=== PATIENT | female | born 1960 | race Caucasian/White ===

== ENCOUNTER 2016-11-15 11:48 | Inpatient (IN) | payer BC, OTHER ==
[2016-11-08 10:58] VITALS: BMI 47.0
--- NOTE | 2016-11-08 11:29 | PAT Medication Instructions ---
Service Date Nov 08, 2016. Current Home Medication List Acetaminophen (Tylenol), 1,000 MG PO PRN Atorvastatin (Lipitor), 20 MG PO for AM Carbamazepine Extended Release (Tegretol Xr), 300 MG PO BID Evening Conway Oil (Evening Conway Oil), 1,000 MG PO BID Fexofenadine Hcl (Dian), 180 MG PO QAM Fluticasone Propionate (Nasal) (Flonase Allergy Relief), 1 SPRAY MERY PRN Furosemide (Lasix), 20 MG PO QAM [Calcium], 600 MG PO QAM Medication Instructions For Your Scheduled Surgery - Hold the following medications 1 week prior to surgery: Evening Conway Oil (Evening Conway Oil), 1,000 MG PO BID - Hold the following medications the morning of surgery: Furosemide (Lasix), 20 MG PO QAM [Calcium], 600 MG PO QAM Fexofenadine Hcl (Dian), 180 MG PO QAM - Take the following medications the morning of surgery with a sip of water OTHERWISE NOTHING TO EAT OR DRINK AFTER MIDNIGHT: Fluticasone Propionate (Nasal) (Flonase Allergy Relief), 1 SPRAY MERY PRN Carbamazepine Extended Release (Tegretol Xr), 300 MG PO BID Atorvastatin (Lipitor), 20 MG PO for AM Acetaminophen (Tylenol), 1,000 MG PO PRN (if needed up to 4 hours prior to surgery) - Take the following medications as scheduled the night before surgery: Fluticasone Propionate (Nasal) (Flonase Allergy Relief), 1 SPRAY MERY PRN Carbamazepine Extended Release (Tegretol Xr), 300 MG PO BID Acetaminophen (Tylenol), 1,000 MG PO PRN If you have any questions please call us at [phone] or [phone] or [phone]
[2016-11-08 12:31] LABS: BASO % 0.2 %; BASO ABS # 0.01 K/uL (0-0.2); COMPLETE YES; EOS % 1.2 %; HEMATOCRIT 39.5 % (37-47); LYMPH % 46.1 %; LYMPH ABS # 1.89 K/uL (1.2-3.4); MEAN CELL VOLUME 90.6 fL (80-100); MEAN CORPUSCULAR HEMOGLOBIN 31.7 pg (25-34); MEAN CORPUSCULAR HGB CONC 34.9 g/dl (32-36); MEAN PLATELET VOLUME 9.7 fL (7.4-10.4); MONO % 5.9 %; NEUT % 46.6 %; PLATELET COUNT 149 K/uL (130-400); RED BLOOD COUNT 4.36 M/uL (4.2-5.4)
[2016-11-08 12:45] LABS: URINE APPEARANCE CLEAR (CLEAR); URINE BILIRUBIN NEG (NEG); URINE COLOR YELLOW; URINE NITRITE NEG (NEG); URINE PH 5.5 (4.5-7.5); URINE SPECIFIC GRAVITY 1.021 (1.000-1.030); UROBILINOGEN NEG (NEG); ZZUR CULT IF INDIC CLEAN CATCH NO
[2016-11-08 12:54] LABS: MANUAL MICROSCOPIC REQUIRED? NO; REVIEW REQ? NO
[2016-11-08 14:06] LABS: BUN/CREATININE RATIO 17.5 (10-20); CALCIUM 9.3 mg/dl (8.5-10.1); CREATININE 0.94 mg/dl (0.60-1.20); POTASSIUM 4.6 mmol/L (3.5-5.1)
[2016-11-15] VITALS (7 sets, daily range): BP systolic 115–157; BP diastolic 67–83; PULSE 65–95; TEMP 36.4–37; O2SAT 96–100; Ht 162.6 cm; Wt 125.6 kg
[~2016-11-15] VITALS: Ht 162.6 cm; Wt 125.6 kg
[~2016-11-15 11:48] MED LIST: ACET-1256 PO; ATOR-22 PO; CALC-51 PO; CARB1CAP10 PO; CEFAZOLIN 3000 MG/65 ML D5W IV SCH; EVENCAP6 PO; FEXO1TAB46 PO; FLUT0.15 NAE; FURO-85 PO; LACTATED RINGER'S 1000ML 1,000 ML IV SCH
--- NOTE | 2016-11-15 13:30 | History & Physical Bridge Note ---
H&P Re-Evaluation Bridge Note: I have examined the patient, reviewed the History & Physical and in the interval since the performance of the History & Physical I have noted the following changes of clinical significance: No changes noted
--- NOTE | 2016-11-15 13:30 | History and Physical ---
History & Physical Date Nov 15, 2016. Chief Complaint Back and bilateral leg pain History of Present Illness The patient is a 56 year old female with complaints of back and bilateral leg pain Past Medical/Surgical History Medical Problems: (1) Arthritis of knee Additional History Hepatic Disease: No Endocrine Disorder: No Kidney Disease: No Hypertension: No Heart Disease: No Bleeding Tendencies: No Infectious Diseases: No Allergies Coded Allergies: Codeine (Verified Allergy, Unknown, PATIENT STATES MED HAS AGGRIVATED SEIZURES IN PAST, 11/15/16) Home Medications Scheduled Acetaminophen (Tylenol), 1,000 MG PO PRN Carbamazepine Extended Release (Tegretol Xr), 300 MG PO BID Evening Warwick Oil (Evening Warwick Oil), 1,000 MG PO BID Fexofenadine Hcl (Dian), 180 MG PO QAM Fluticasone Propionate (Nasal) (Flonase Allergy Relief), 1 SPRAY MERY PRN Furosemide (Lasix), 20 MG PO QAM [Calcium], 600 MG PO QAM Scheduled PRN Atorvastatin (Lipitor), 20 MG PO for AM Physical Examination Skin: warm/dry, no rash Eyes: normal inspection, EOMI, sclerae normal ENT: normal ENT inspection, pharynx normal Head: normocephalic, atraumatic Neck: supple, no adenopathy, trachea midline Respiratory/Chest: lungs clear, normal breath sounds, no respiratory distress Cardiovascular: regular rate, rhythm, no edema, no murmur Abdomen / GI: normal bowel sounds, non tender Back: normal inspection Extremities: normal inspection, normal range of motion Neurologic/Psych: no motor/sensory deficits, alert, normal reflexes, oriented x 3 Diagnosis Lumbar spinal stenosis Plan of Treatment Lumbar decompression L2 3 with fusion. Removal of instrumentation L3 to S1.
[2016-11-15] MEDS ORDERED: MIDAZOLAM HCL 1 MG/ML 2ML VIAL ONE (13:40)
[2016-11-15] MEDS ORDERED: FENTANYL CITRATE INJ 50 MCG/1 ML 2 ML VIAL ONE ×4 (13:40→16:47)
[2016-11-15] MEDS ORDERED: MoRPHine SULFATE 10 MG/ML CARP/VIAL IV PRN (13:45)
[2016-11-15] MEDS ORDERED: ONDANSETRON INJ 2 MG/ML 2 ML VIAL IV PRN ×2 (13:45→16:45)
[2016-11-15] MEDS ORDERED: FENTANYL CITRATE INJ 50 MCG/1 ML 2 ML VIAL IV PRN (13:45)
[2016-11-15] MEDS ORDERED: ATROPINE SULFATE 0.1 MG/ML 5ML SYR IV PRN (13:45)
[2016-11-15] MEDS ORDERED: EpHEDrine SULFATE INJ 50 MG/ML AMP IV PRN (13:45)
[2016-11-15] MEDS ORDERED: BUPIVACAINE/EPINEPHRINE 0.5% MPF 1:200,000 10 ML VIAL ONE (14:00)
[2016-11-15] MEDS ORDERED: BACITRACIN 50000 UNIT VIAL ONE (14:00)
[2016-11-15] MEDS ORDERED: SODIUM CHLORIDE 0.9% PF 50 ML VIAL ONE (14:00)
[2016-11-15] MEDS ORDERED: HYDROmorphone INJ 2 MG/ML SYR/VIAL ONE (14:29)
[2016-11-15] MEDS ORDERED: ONDANSETRON INJ 2 MG/ML 2 ML VIAL ONE ×2 (14:49→16:38)
[2016-11-15] MEDS ORDERED: LIDOCAINE HCL 2% 2 ML VIAL (20MG/ML) ONE (14:49)
[2016-11-15] MEDS ORDERED: PROPOFOL IV EMULSION 10 MG/ML 20 ML VIAL IV ONE (14:49)
[2016-11-15] MEDS ORDERED: DEXAMETHASONE SOD INJ 4 MG/ML VIAL ONE (14:49)
[2016-11-15] MEDS ORDERED: ROCURONIUM BROMIDE 10 MG/ML 5 ML VIAL ONE (14:49)
[2016-11-15] MEDS ORDERED: FLOSEAL HEMOSTATIC MATRIX 10ML TOP ONE (16:36)
[2016-11-15] MEDS ORDERED: SODIUM CHLORIDE 0.9% 1000ML 1,000 ML IV SCH (16:36)
[2016-11-15] MEDS ORDERED: EpHEDrine SULFATE INJ 50 MG/ML AMP ONE (16:38)
[2016-11-15] MEDS ORDERED: GLYCOPYRROLATE INJ 0.2 MG/ML VIAL ONE (16:38)
[2016-11-15] MEDS ORDERED: NEOSTIGMINE METHYLSULFATE 1 MG/ML 10ML VIAL ONE (16:38)
[2016-11-15] MEDS ORDERED: PHENYLEPHRINE 100MCG/ML 5ML SYR ONE (16:38)
--- NOTE | 2016-11-15 16:43 | [facility] Operative Report ---
Operative Report Operative Date Nov 15, 2016. Pre-Operative Diagnosis Lumbar Spinal Stenosis Post-Operative Diagnosis Lumbar Spinal Stenosis Procedure(s) Performed #1 removal of posterior instrumentation L3 4 L4 5 L5-S1. #2 expiration of fusion L3 4 L4 5 L5-S1. #3 lumbar decompression medial facetectomies L2-3 L3 4. #4 posterior spinal fusion L2 3 L3 4. #5 placement of posterior segmental instrumentation L2 3 L3 4. #6 placement of locally harvested morcellized autograft and posterior gutters. #7 placement infuse collagen sponge, mask graft in the posterior lateral gutters. Surgeon Dr. Hilton Unix Manager Surgeon(s) Marcelo Mcdonald PA-C Estimated Blood Loss 700ML Findings Severe spinal stenosis with nonunion L34. Specimens A. Explanted Hardware L3-S1 Description of Procedure Patient was met with preoperatively case discussed all questions are dressed. That point patient was taken back to the operative suite and after undergoing intubation placed in a prone position on the Orlin table on top of the James frame. All bony promises well-padded eyes inspected to ensure there is no external pressure placed upon. This point the lumbar spine prepped and draped in the normal sterile fashion. Sharp dissection with the assistance of Bovie cautery was performed onto an exposing the lamina of L2 in the instrumentation L3 4 5 S1 levels bilaterally. I then proceeded to remove the hardware bilaterally explored the fusion mass noting nonunion at the L3 4 level. All other levels were solid. Then performed a complete laminectomy of L3 L2 addressing severe lateral recess stenosis. After this complete pedicle screws are placed in L2 L3 L4 bilaterally with the assistance of fluoroscopy in the properly sized minal locked in position. Cross-link was locked in position. The transverse processes of L2 L3 L4 were then burred to subcortical bleeding bone. Infuse calm sponge mask graft locally harvested morcellized autograft was placed and posterior gutters. A 15 round GRACE drain inserted. Incision was then closed with 1 Vicryl in the fascia 2-0 Vicryl subcutaneous C 4 Monocryl for final skin closure Steri-Strip sterile dressing placed patient awakened taken to PACU stable condition. Please note Michael Mcdonald was present throughout the entire procedure involved in patient positioning complex portions of the procedure and final skin closure. I attest to the content of the Intraoperative Record and any orders documented therein. Any exceptions are noted below.
[2016-11-15] MEDS ORDERED: ACETAMINOPHEN IV 100 ML IV PRN (16:45)
[2016-11-15] MEDS ORDERED: LORAZEPAM INJ 0.5 MG in SYRINGE 0 ML IV PRN (16:45)
[2016-11-15] MEDS ORDERED: MAGNESIUM HYDROXIDE SUSP 30 ML UDC PO PRN (16:45)
[2016-11-15] MEDS ORDERED: SOD PHOSPHATE/SOD BIPHOSPHATE ENEMA 132 ML BTL PR PRN (16:45)
[2016-11-15] MEDS ORDERED: PROMETHAZINE HCL INJ 12.5 MG in SODIUM CHLORIDE 0.9% 50ML 50 ML IV PRN (16:45)
[2016-11-15] MEDS ORDERED: ALUMINUM/MAGNESIUM SUSP 30 ML UDC PO PRN (16:45)
[2016-11-15] MEDS ORDERED: NALOXONE HCL 0.4 MG/1 ML VIAL/CARP IV PRN ×2 (16:45)
[2016-11-15] MEDS ORDERED: FAMOTIDINE 20 MG TAB PO PRN (16:45)
[2016-11-15] MEDS ORDERED: DO NOT ADMINISTER PNEUMOCOCCAL VACCINE PRN ×2 (16:45)
[2016-11-15] MEDS ORDERED: DO NOT ADMINISTER FLU VACCINE PRN ×3 (16:45)
[2016-11-15] MEDS ORDERED: BISACODYL 10 MG SUPP PR PRN (16:45)
[2016-11-15] MEDS ORDERED: LORAZEPAM 0.5 MG TAB PO PRN (16:45)
[2016-11-15] MEDS ORDERED: hydrOXYzine HCL 25 MG TAB PO PRN (16:45)
[2016-11-15] MEDS ORDERED: METOCLOPRAMIDE HCL INJ 5 MG/ML 2 ML VIAL IV PRN (16:45)
[2016-11-15] MEDS ORDERED: FLUTICASONE PROPIONATE NA SPR 16 GM BTL NAE PRN (16:45)
[2016-11-15] MEDS ORDERED: ACETAMINOPHEN 500 MG TAB PO PRN (16:45)
[2016-11-15] MEDS ORDERED: HYDROmorphone INJ 0.5 MG/0.5 ML SYR IV PRN (16:45)
--- NOTE | 2016-11-15 16:50 | DIAGNOSTIC IMAGING REPORT ---
LUMBAR SPINE 2 OR 3 VIEW CLINICAL HISTORY: L3-S1 DECOMP/FUSION fusion TECHNIQUE: Image intensifier COMPARISON STUDY: None FINDINGS: Image intensifier was used for lumbar laminectomy and fusion IMPRESSION: Image intensifier usage for lumbar laminectomy and fusion The above report was generated using voice recognition software. It may contain grammatical, syntax or spelling errors. Electronically signed by: Prince Flores M.D. 11/15/2016 4:48 PM Dictated Date/Time: 11/15/2016 4:48 PM
[2016-11-15] MEDS ORDERED: HYDROmorphone HCL 0.5MG/ML 50 ML CASSETTE ONE (17:05)
[2016-11-15] MEDS ORDERED: HYDROmorphone INJ 1 MG/ML SYR IV PRN (17:15)
--- NOTE | 2016-11-15 18:11 | Anesthesiology Progress Note ---
Anesthesia Post Op Note Date & Time Nov 15, 2016 at 18:11 Vital Signs Pain Intensity: 5 Vital Signs Past 12 Hours Date Time Temp Pulse Resp B/P (MAP) Pulse Ox O2 Delivery O2 Flow Rate FiO2 11/15/16 18:03 122/71 11/15/16 18:02 86 16 11/15/16 18:02 82 16 100 11/15/16 18:01 161/90 11/15/16 17:57 93 22 11/15/16 17:57 95 22 100 11/15/16 17:56 166/87 11/15/16 17:55 161/79 11/15/16 17:52 85 18 100 11/15/16 17:52 85 18 11/15/16 17:51 160/86 11/15/16 17:50 65 18 11/15/16 17:50 73 18 100 11/15/16 17:46 171/83 11/15/16 17:45 89 22 100 11/15/16 17:45 90 22 11/15/16 17:41 158/89 11/15/16 17:40 91 14 100 11/15/16 17:40 91 14 11/15/16 17:37 149/84 11/15/16 17:36 189/89 11/15/16 17:36 36.6 87 16 158/89 (110) 100 Nasal Cannula 4 11/15/16 17:35 87 15 100 11/15/16 17:35 86 15 11/15/16 17:34 87 13 100 11/15/16 17:34 86 13 11/15/16 17:31 167/84 11/15/16 17:29 88 23 11/15/16 17:29 87 23 100 11/15/16 17:28 91 19 11/15/16 17:28 91 19 100 11/15/16 17:28 91 19 11/15/16 17:28 91 19 100 11/15/16 17:26 163/81 11/15/16 17:26 163/81 11/15/16 17:23 87 17 11/15/16 17:23 87 17 100 11/15/16 17:23 87 17 11/15/16 17:23 87 17 100 11/15/16 17:21 164/79 11/15/16 17:21 164/79 11/15/16 17:18 92 16 100 11/15/16 17:18 92 16 100 11/15/16 17:18 91 16 11/15/16 17:18 91 16 11/15/16 17:16 164/82 11/15/16 17:16 164/82 11/15/16 17:13 90 17 100 11/15/16 17:13 90 17 100 11/15/16 17:13 92 17 11/15/16 17:13 92 17 11/15/16 17:11 156/75 11/15/16 17:11 156/75 11/15/16 17:08 83 13 11/15/16 17:08 83 13 11/15/16 17:08 83 13 100 11/15/16 17:08 83 13 100 11/15/16 17:06 147/83 11/15/16 17:06 147/83 11/15/16 17:04 156/81 11/15/16 17:04 156/81 11/15/16 17:03 92 10 97 11/15/16 17:03 36.6 89 16 156/81 96 Mask 10 11/15/16 17:03 92 10 97 11/15/16 17:03 92 10 11/15/16 17:03 92 10 11/15/16 12:28 37 73 18 98 Room Air Notes Mental Status: alert / awake / arousable, participated in evaluation Pt Amnestic to Procedure: Yes Nausea / Vomiting: adequately controlled Pain: adequately controlled Airway Patency, RR, SpO2: stable & adequate BP & HR: stable & adequate Hydration State: stable & adequate Anesthetic Complications: no major complications apparent
[2016-11-15] MEDS: HYDROmorphone HCL 0.5MG/ML 50 ML CASSETTE IV PRN ×2 (18:34→22:55)
[2016-11-15] MEDS: SODIUM CHLORIDE 0.9% 1000ML 1,000 ML IV SCH ×2 (20:26→23:16)
[2016-11-15] MEDS: CARBAMAZEPINE 100 MG TABCR PO SCH (20:31)
[2016-11-15] MEDS: DOCUSATE SODIUM/SENNA 50/8.6MG TAB PO SCH (20:32)
[2016-11-15] MEDS: CEFAZOLIN IV 2,000 MG in DEXTROSE 5% 50ML 50 ML IV SCH (21:33)
[2016-11-15] MEDS: DEXAMETHASONE INJ 6 MG in SYRINGE 0 ML IV SCH (21:33)
[2016-11-16 03:29] VITALS: BP 100/66; PULSE 98; TEMP 36.7; O2SAT 99
[2016-11-16] MEDS: CEFAZOLIN IV 2,000 MG in DEXTROSE 5% 50ML 50 ML IV SCH (05:57)
[2016-11-16] MEDS: DEXAMETHASONE INJ 6 MG in SYRINGE 0 ML IV SCH ×3 (05:57→17:12)
[2016-11-16] MEDS ORDERED: DC PCA ONE (06:00)
[2016-11-16 06:29] LABS: COMPLETE YES; IG% 0.4 %; LYMPH % 14.7 %; LYMPH ABS # 0.76 K/uL (1.2-3.4); MEAN CELL VOLUME 91.2 fL (80-100); MEAN CORPUSCULAR HEMOGLOBIN 31.4 pg (25-34); MEAN CORPUSCULAR HGB CONC 34.5 g/dl (32-36); MEAN PLATELET VOLUME 9.5 fL (7.4-10.4); MONO % 4.1 %; NEUT % 80.8 %; PLATELET COUNT 131 K/uL (130-400); RED BLOOD COUNT 3.18 M/uL (4.2-5.4); WHITE BLOOD COUNT 5.16 K/uL (4.8-10.8)
[2016-11-16] MEDS ORDERED: NURSING VERBAL MED ORDER ONE (06:30)
[2016-11-16 07:07] LABS: BUN/CREATININE RATIO 10.7 (10-20); CALCIUM 8.6 mg/dl (8.5-10.1); CREATININE 0.82 mg/dl (0.60-1.20); POTASSIUM 4.4 mmol/L (3.5-5.1)
[2016-11-16 07:32] VITALS: BP 97/67; PULSE 86; TEMP 36.8; O2SAT 99
[2016-11-16] MEDS: FUROSEMIDE 20 MG TAB PO SCH (09:00)
[2016-11-16] MEDS ORDERED: SODIUM CHLORIDE 0.65% NA SOLN 45 ML (OCEAN) ONE (09:33)
[2016-11-16] MEDS: OXYCODONE HCL IR 5 MG TAB (IMMEDIATE RELEASE) PO PRN ×2 (09:35→23:52)
[2016-11-16] MEDS: FEXOFENADINE HCL 180 MG TAB PO SCH (09:37)
[2016-11-16] MEDS: CARBAMAZEPINE 100 MG TABCR PO SCH ×2 (09:38→20:22)
[2016-11-16] MEDS ORDERED: NURSING DECISION MEDICATION ORDER SCH ×2 (09:45→14:45)
--- NOTE | 2016-11-16 09:54 | Progress Note ---
Progress Note Date of Service Nov 16, 2016. Progress Note Patient's back pain is markedly improved. Leg pain improved. Vital signs are stable GRACE drain decreasing appropriately. On exam she is in chair at bedside as good strength testing appears comfortable. Assessment status post lumbar depression fusion. Planned this time initiate physical therapy advance her bowel regimen anticipate home possibly Friday
[2016-11-16] MEDS ORDERED: SODIUM CHLORIDE 0.65% NA SOLN 45 ML (OCEAN) PRN (10:15)
[2016-11-16 11:02] VITALS: BP 111/73; PULSE 57; O2SAT 97
[2016-11-16] MEDS ORDERED: COUGH DROP (SUGAR FREE) LOZ 24 LOZ/1 BOX ONE (14:35)
[2016-11-16] MEDS ORDERED: COUGH DROP (SUGAR FREE) LOZ 24 LOZ/1 BOX PO PRN (14:45)
[2016-11-16 15:41] VITALS: BP 121/77; PULSE 69; TEMP 36.8; O2SAT 100
[2016-11-16] MEDS: DOCUSATE SODIUM/SENNA 50/8.6MG TAB PO SCH (20:21)
[2016-11-16 23:15] VITALS: BP 110/73; PULSE 75; TEMP 36.7; O2SAT 99
[2016-11-17] MEDS: POLYETHYLENE (MIRALAX) 17 GM PACK PO SCH ×4 (05:56→23:42)
[2016-11-17 06:59] VITALS: BP 118/74; PULSE 74; TEMP 36.7; O2SAT 100
[2016-11-17] MEDS: OXYCODONE HCL IR 5 MG TAB (IMMEDIATE RELEASE) PO PRN ×3 (07:30→20:43)
[2016-11-17] MEDS: CARBAMAZEPINE 100 MG TABCR PO SCH ×2 (07:31→20:39)
[2016-11-17] MEDS: FEXOFENADINE HCL 180 MG TAB PO SCH (07:31)
[2016-11-17] MEDS: FUROSEMIDE 20 MG TAB PO SCH (07:32)
[2016-11-17] MEDS ORDERED: KETOROLAC TROMETHAMINE 30 MG/ML VIAL IV PRN (09:15)
--- NOTE | 2016-11-17 09:16 | Progress Note ---
Progress Note Date of Service Nov 17, 2016. Progress Note Patient is improving nicely. Back pain only. Leg pain improved. Vital signs stable GRACE drain decreasing appropriately. On exam she is ambulatory in the halls with a walker. Comfortable. Assessment status post lumbar depression fusion replant this time will maintain the GRACE drain another 24 hours. We'll consult OT and possibly discharge home tomorrow.
[2016-11-17 15:12] VITALS: BP 105/69; PULSE 84; TEMP 36.8; O2SAT 100
[2016-11-17 16:30] VITALS: O2SAT 100
[2016-11-17] MEDS: DOCUSATE SODIUM/SENNA 50/8.6MG TAB PO SCH (20:39)
[2016-11-17 23:03] VITALS: BP 136/71; PULSE 93; TEMP 37; O2SAT 98
[2016-11-18] MEDS: POLYETHYLENE (MIRALAX) 17 GM PACK PO SCH (05:26)
[2016-11-18] MEDS ORDERED: NURSING DECISION MEDICATION ORDER SCH (06:15)
[2016-11-18 07:03] VITALS: BP 122/76; PULSE 87; TEMP 37.4; O2SAT 95
[2016-11-18] MEDS: OXYCODONE HCL IR 5 MG TAB (IMMEDIATE RELEASE) PO PRN ×2 (08:25→13:39)
[2016-11-18] MEDS: FUROSEMIDE 20 MG TAB PO SCH (08:26)
[2016-11-18] MEDS: CARBAMAZEPINE 100 MG TABCR PO SCH (08:26)
[2016-11-18] MEDS: FEXOFENADINE HCL 180 MG TAB PO SCH (08:26)
--- NOTE | 2016-11-18 08:29 | Anesthesiology Progress Note ---
Anesthesia Post Op Note Date & Time Nov 18, 2016 at 08:29 Vital Signs Pain Intensity: 6.0 Vital Signs Past 12 Hours Date Time Temp Pulse Resp B/P (MAP) Pulse Ox O2 Delivery O2 Flow Rate FiO2 11/18/16 07:03 37.4 87 19 122/76 (91) 95 Room Air 11/17/16 23:15 Room Air 11/17/16 23:03 37.0 93 16 136/71 (92) 98 Room Air Notes Mental Status: alert / awake / arousable, participated in evaluation Pt Amnestic to Procedure: Yes Nausea / Vomiting: adequately controlled Pain: adequately controlled Airway Patency, RR, SpO2: stable & adequate BP & HR: stable & adequate Hydration State: stable & adequate Anesthetic Complications: no major complications apparent
[2016-11-18] MEDS ORDERED: RXC5 PO (11:29)
--- NOTE | 2016-11-18 11:30 | Discharge Instructions ---
Discharge Instructions Date of Service Nov 18, 2016. Admission Reason for Admission: Lumbar Spinal Stenosis Discharge Discharge Diagnosis / Problem: stenosis Discharge Goals Goal(s): Improve function Activity Recommendations Activity Limitations: per Instructions/Follow-up section . Instructions / Follow-Up Instructions / Follow-Up ACTIVITY RECOMMENDATIONS: SELF CARE INSTRUCTIONS AFTER THORACIC/LUMBAR FUSIONS 1. You may walk to your tolerance. It is good exercise for your legs and back. Expect some back and intermittent leg aches and pains. 2. You may perform "counter-top" level activities (make a sandwich, carlee with a project, etc.). 3. No bending or lifting of more than 10 pounds or back twisting of any nature (roll like a log when turning in bed). 4. You may ride in a car for 20-30 minutes at a time. No driving until after your first visit with your doctor. 5. Frequent changes of position and restricting sitting to 30 minutes at a time will help limit the amount of back spasms and stiffness you may experience. 6. You may discontinue the use of ambulatory aids (cane, crutches, etc.) once your strength and confidence allow. 7. You may watchstander the shower and let water strike your incision when you arrive home at least once daily. Do not take a tub bath, sit in a hot tub or go into a swimming pool until after your first recheck in the office. SPECIAL CARE INSTRUCTIONS: VERY IMPORTANT TO READ AND REVIEW A. Your surgical incision has been closed with a cosmetic suture under the skin that will dissolve in about 6 weeks. In 14 days, you can use a pair of clean scissors and cut the suture that is left outside of the skin at the ends of your incision. 1. The small skin tapes can be removed 7 days after surgery if they have not fallen off by that point. 2. You may keep the wound open to air as much as possible to promote healing after post-op day number 5 unless told otherwise by your doctor. 3. If you think the wound looks like it is becoming infected (redness or worsening drainage) and/or you are experiencing fever, chill or worsening back pain and muscle spasms, contact the office so that we may evaluate you as soon as possible. B. Complications are uncommon, but please contact us if you have any signs or symptoms of: 1. wound infection (fever higher than 102.5 degrees F, redness, separation of wound, drainage, or increasing pain from the incision) 2. blood clots in legs (pain, swelling, redness and warmth in legs) 3. urinary tract infection (fever higher than 102.5 degrees F, burning upon urination or increased frequency of urination) 4. nerve problems (inability to walk on your toes or heels, numbness, loss of bowel or bladder control) 5. any other symptoms that concern you C. Please call the office at if you have any concerns or questions about your operation or recovery. D. No smoking! Smoking drastically decreases the chance of a solid fusion. E. Do not take any anti-inflammatory medications (Indocin, Advil, Motrin, Aspirin, Naprosyn, etc.) as these may inhibit the chance of a solid fusion. Tylenol is okay to take for pain. MANAGING PAIN AFTER SPINAL SURGERY 1. Narcotic medication is intended for short-term use and will be provided for surgical pain. Surgical pain usually lasts for a period of 4-6 weeks. Narcotic medication includes Percocet, Vicodin, Darvocet, Tylenol #3 or Lortab. 2. Longer-term pain is more appropriately treated with non-narcotic medication such as Tylenol ES. 3. Muscle spasm is not appropriately treated with narcotics. Muscle relaxers such as Soma, Flexeril or Skelaxin can be used along with Tylenol ES. 4. Remember that we all live with some "aches and pains". This is not unusual or uncommon after an injury or as we get older. a. Back pain is expected and may include muscle spasms for 4 to 6 weeks after surgery. The pain should gradually improve. If the pain worsens for no apparent reason, please contact the office. b. Intermittent leg pain may also be experienced and should not be concerned about unless it worsens for no apparent reason. If so, please contact the office. 5. We will provide appropriate medication within the normal guidelines of their prescribed use. We will also be very cautious and aware of potential abuse and extended duration of patients' medication needs. a. Pain medications are for your comfort and to assist with sleep and rest so that the tissue can heal. They are not provided in order to return to normal activity and should not be used through the day. To do so or worsening pain at night can result from ongoing tissue damage and development of tolerance to the prescribed medicine. 6. Please allow 2-3 days to process refills. Prescriptions will not be mailed but must be picked up at the office. FOLLOW UP VISIT: Keep your scheduled follow-up appointment. Any questions, please call the office at . Current Hospital Diet Patient's current hospital diet: Regular Diet Discharge Diet Recommended Diet: Regular Diet Procedures Procedures Performed: #1 removal of posterior instrumentation L3 4 L4 5 L5-S1. #2 expiration of fusion L3 4 L4 5 L5-S1. #3 lumbar decompression medial facetectomies L2-3 L3 4. #4 posterior spinal fusion L2 3 L3 4. #5 placement of posterior segmental instrumentation L2 3 L3 4. #6 placement of locally harvested morcellized autograft and posterior gutters. #7 placement infuse collagen sponge, mask graft in the posterior lateral gutters. Pending Studies Studies pending at discharge: no Medical Emergencies . Who to Call and When: Medical Emergencies: If at any time you feel your situation is an emergency, please call 911 immediately. . Non-Emergent Contact Non-Emergency issues call your: Primary Care Provider . "Provider Documentation" section prepared by Tomasz Hilton. . VTE Core Measure Inpt VTE Proph given/why not?: Jania Garrido, SCD's
[2016-11-18 13:17] VITALS: BP 122/76; PULSE 87; TEMP 37.4; O2SAT 95
--- NOTE | 2016-11-18 15:44 | Discharge Summary ---
Orthopedic Discharge Summary Admission Date/Reason Nov 15, 2016 at 13:35 Lumbar Spinal Stenosis. Discharge Date/Disposition Nov 18, 2016 Home Diagnosis Principal Diagnosis: Spinal stenosis Admission Physical Exam As per Admitting History & Physical. Hospital Course 1 lumbar decompression fusion trolleys wound taken to the orthopedic floor postoperatively. Postoperative leash progressed nicely. GRACE drain decreased appropriately. Subsequently discharge home. Discharge orders and instructions found the chart for further review. Discharge Instructions Please refer to the electronic Patient Visit Report (Discharge Instructions) for additional information.
== END 2016-11-18 14:45 | disposition home or self-care (01) | DRG 460 ==
LOC: C.ACU 11:48 → C.3E 13:35 → ENRESERV 17:50 → C.MSN 11-17 18:58
PROVIDERS: ADMIT Orthopaedic Surgery Orthopaedic Surgery of the Spine; ATTEND Orthopaedic Surgery Orthopaedic Surgery of the Spine
PROC: 0QP004Z Removal of Internal Fixation Device from Lumbar Vertebra, Open Approach (ICD-10-PCS; principal; 2016-11-15 13:45)
PROC: 0SG1071 Fusion of 2 or more Lumbar Vertebral Joints with Autologous Tissue Substitute, Posterior Approach, Posterior Column, Open Approach (ICD-10-PCS; principal; 2016-11-15 13:45)
DX: M48.06 Spinal stenosis, lumbar region (principal); M17.10 Unilateral primary osteoarthritis, unspecified knee

== ENCOUNTER → 2017-09-03 | Outpatient (CLI) | payer BC ==
[~2017-09-03] MED LIST changes: -CEFAZOLIN 3000 MG/65 ML D5W IV SCH; -LACTATED RINGER'S 1000ML 1,000 ML IV SCH; +RXC5 PO
[2017-09-03 13:31] LABS: ALBUMIN 3.8 gm/dl (3.4-5.0); ALT/SGPT 29 U/L (12-78); AST/SGOT 22 U/L (15-37); BLOOD UREA NITROGEN 19 mg/dl (7-18); CALCIUM 9.2 mg/dl (8.5-10.1); CARBON DIOXIDE 33 mmol/L (21-32); CREATININE 0.92 mg/dl (0.60-1.20); GLUCOSE 97 mg/dl (70-99); POTASSIUM 4.6 mmol/L (3.5-5.1); SODIUM 142 mmol/L (136-145)
[2017-09-03 13:34] LABS: ALKALINE PHOSPHATASE 138 U/L (45-117); TOTAL PROTEIN 7.5 gm/dl (6.4-8.2)
== END | disposition home or self-care (01) ==
LOC: C.LABMFLN 07:45
PROVIDERS: ATTEND Family Medicine
DX: R74.8 Abnormal levels of other serum enzymes (principal)

== ENCOUNTER → 2017-12-01 | Outpatient (CLI) | payer BC ==
--- NOTE | 2017-12-01 15:42 | DIAGNOSTIC IMAGING REPORT ---
R HIP UNILATERAL 2 VIEWS CLINICAL HISTORY: Acute right hip pain. COMPARISON: None FINDINGS: Alignment of the right hip is anatomic. No fracture or suspicious lesion is noted. There is mild joint space narrowing and moderate osteoarthritis of the right hip. There is no radiographic evidence for avascular necrosis. Postoperative findings within the lumbosacral spine are partially imaged. IMPRESSION: 1. No acute fracture. 2. Moderate right hip osteoarthritis. Electronically signed by: Dusty Hodges M.D. 12/01/2017 3:40 PM Dictated Date/Time: 12/01/2017 3:37 PM
== END | disposition home or self-care (01) ==
LOC: C.RAD1850 15:25
PROVIDERS: ATTEND Family Medicine
DX: M16.11 Unilateral primary osteoarthritis, right hip (principal)

== ENCOUNTER → 2017-12-01 | Outpatient (CLI) | payer BC | END | disposition home or self-care (01) | LOC: C.MAMM 14:38 | PROVIDERS: ATTEND Family Medicine | DX: Z78.0 Asymptomatic menopausal state (principal) ==

== ENCOUNTER 2019-02-18 09:53 | Inpatient (IN) ==
--- NOTE | 2019-02-04 16:35 | PAT Medication Instructions ---
Medication Instructions Date of Service February 04, 2019 Home Medications Medication Instructions Recorded carbamazepine ER 300 mg 300 mg PO BID #180 cap 11/23/18 capsule,extended release [id number] atorvastatin 20 mg tablet 20 mg PO QAM #90 tab 12/22/18 lisinopril 5 mg tablet 5 mg PO QAM #90 tab 01/14/19 carbamazepine ER 300 mg capsule,extended release [id number] 300 mg PO BID fluticasone propionate 2 sprays INTRANASAL QAM atorvastatin 20 mg tablet 20 mg PO QAM guaifenesin [Mucinex] 600 mg PO BID lisinopril 5 mg tablet 5 mg PO QAM fexofenadine 180 mg tablet 180 mg PO QAM furosemide 20 mg tablet 20 mg PO QAM PRN pantoprazole 40 mg PO QAM DO NOT take the morning of surgery guaifenesin [Mucinex] 600 mg PO BID lisinopril 5 mg tablet 5 mg PO QAM fexofenadine 180 mg tablet 180 mg PO QAM furosemide 20 mg tablet 20 mg PO QAM PRN Take morning of surgery With a small sip of water, OTHERWISE NOTHING TO EAT OR DRINK AFTER MIDNIGHT: carbamazepine ER 300 mg capsule,extended release [id number] 300 mg PO BID fluticasone propionate 2 sprays INTRANASAL QAM atorvastatin 20 mg tablet 20 mg PO QAM pantoprazole 40 mg PO QAM Take evening before surgery carbamazepine ER 300 mg capsule,extended release [id number] 300 mg PO BID guaifenesin [Mucinex] 600 mg PO BID Other Notes If you have any questions please call us at [phone] or [phone] or [phone] or [phone]
--- NOTE | 2019-02-05 11:28 | Anesthesiology Consultation ---
Date of Service February 05, 2019 Assessment & Plan (1) Encounter for pre-operative examination: Chart Review Chart Review: Pending: Refer to Additional Notes / Consult section (pending preop testing (labs, EKG)) and Patient seen in Pre Admission Testing Teaching & Discussion Pre-Anesthesia Teaching/Discussion Notes: Instructed NPO after midnight before surgery,except medications with 15 cc of water. Medication instructions provided according to the PAT guidelines. History Surgery Operation Date: 02/18/19 09:50 Proposed Procedures p T12-L1, L1-L2 Laminectomy and Fusion - Tc Segundo, Height/Weight Height: 5 ft 4 in Weight: 122.2 kg Allergies Allergy/AdvReac Type Severity Reaction Status Date / Time codeine AdvReac Mild enhanced Verified 02/05/19 11:23 prior seizures Medications Home Medications Medication Instructions Recorded Confirmed Last Taken carbamazepine ER 300 mg 300 mg PO BID #180 cap 11/23/18 02/04/19 12/29/18 07:00 capsule,extended release [id number] fluticasone propionate 2 sprays INTRANASAL QAM 12/17/18 02/04/19 12/27/18 07:30 atorvastatin 20 mg tablet 20 mg PO QAM #90 tab 12/22/18 02/04/19 12/29/18 07:00 guaifenesin [Mucinex] 600 mg PO BID 12/29/18 02/04/19 12/28/18 07:00 lisinopril 5 mg tablet 5 mg PO QAM #90 tab 01/14/19 02/04/19 Unknown fexofenadine 180 mg tablet 180 mg PO QAM 01/17/19 02/04/19 Unknown furosemide 20 mg tablet 20 mg PO QAM PRN tab 01/17/19 02/04/19 Unknown pantoprazole 40 mg PO QAM 02/02/19 02/04/19 Unknown Past Medical History Medical History Seizure disorder last seizure 20yrs ago--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, s/p brain surgery related to seizure hx Lumbar disc disease Lumbar back pain with radiculopathy affecting right lower extremity Hyperlipidemia HTN (hypertension) Arthritis Anemia Deep vein thrombosis calf DVT during , none further GERD (gastroesophageal reflux disease) controlled Morbid obesity Exercise / Class Metabolic Activity III < 4 Walking/Shop/Light housework Past Family History Family History Father Malignant neoplasm of urinary bladder Mother Family history of reaction to anesthesia difficulty waking Past Surgical History Surgical History History of Achilles tendon repair bilt History of arthroscopy of right knee x3--meniscus repair History of bilateral tubal ligation History of carpal tunnel surgery of left wrist History of colonoscopy History of esophagogastroduodenoscopy (EGD) History of fusion of cervical spine normal ROM History of lumbar spinal fusion x2 History of lumbar surgery History of repair of left rotator cuff History of surgery on left wrist History of tonsillectomy and adenoidectomy History of tooth extraction History of total right knee replacement (TKR) History of wisdom tooth extraction Status post lobectomy of brain left temporal at age 32 @ [facility] reason was d/t seizures Past Anesthesia History No Hx of Anesthesia Complications Mother: "slow to wake" History of PONV No Hx of PONV and No Hx of Motion Sickness Social History Smoking Status: Never smoker Do You Dip or Chew Tobacco: No Hx Alcohol Use: No Hx Substance Use: No substance use type: does not use Review of Systems Hx reflux controlled. Patient denies chest pain, shortness of breath, cough, wheezing, palpitations. Physical Exam Vital Signs VITALS BP 143/85 P 69 TEMP 98.0 SP02 98%RA RESP 16 PHYSICAL Full neck and c-spine range of motion. Full TMJ range of motion. TMD 3 finger breaths Mallampati Score 1 Dentition: missing sides Lungs: clear throughout to auscultation Cardiac: regular rate and rhythm, no murmurs noted Spine: normal Carotid arteries: negative bruit Extremities: no edema Testing Chest X-Ray Date: 08/10/18 Findings: + NAD
[2019-02-05 11:48] LABS: Basophils # (auto) 0.02 K/uL (0-0.2); Basophils % (auto) 0.5 %; Eosinophils # (auto) 0.07 K/uL (0-0.5); Eosinophils % (auto) 1.6 %; Hematocrit (blood only) 40.2 % (37-47); Hemoglobin 13.8 g/dL (12.0-16.0); Immature Granulocytes # (auto) 0.01 K/uL (0.00-0.02); Immature Granulocytes % (auto) 0.2 %; Lymphocytes # (auto) 1.77 K/uL (1.2-3.4); Lymphocytes % (auto) 41.5 %; Mean Corpuscular Hemoglobin 31.7 pg (25-34); Mean Corpuscular Hgb Conc 34.3 g/dL (32-36); Mean Corpuscular Volume 92.2 fL (80-100); Mean Platelet Volume 9.8 fL (7.4-10.4); Monocytes # (auto) 0.29 K/uL (0.11-0.59); Monocytes % (auto) 6.8 %; Neutrophils # (auto) 2.11 K/uL (1.4-6.5); Neutrophils % (auto) 49.4 %; Platelet Count 165 K/uL (130-400); RDW Coefficient of Variation 12.8 % (11.5-14.5); RDW Standard Deviation 43.3 fL (36.4-46.3); Red Blood Count 4.36 M/uL (4.2-5.4); White Blood Count 4.27 K/uL (4.8-10.8)
[2019-02-05 12:03] LABS: BUN Creatinine Ratio 14.9 (10-20); Calcium 9.1 mg/dl (8.5-10.1); Creatinine Clr Calc Pharmacy 81.7 ml/min; Est GFR (African American) 74.2; Potassium 4.5 mmol/L (3.5-5.1)
[2019-02-05 12:05] LABS: Partial Thromboplastin Ratio 0.9; Partial Thromboplastin Time 23.9 Seconds (21.0-31.0)
--- NOTE | 2019-02-17 14:45 | History and Physical Report ---
DATE OF ADMISSION: 02/17/2019 CHIEF COMPLAINT: Back and lower extremity difficulty, and claudication. Ongoing now for multiple years in duration, worsening over time. PAST MEDICAL HISTORY: Positive for obesity, hypertension, stomach ulcers, usual childhood diseases, high cholesterol, obesity. PAST SURGICAL HISTORY: Includes lobectomy, spine surgery, neck surgery, knee replacement, cubital tunnel. ALLERGIES: CODEINE. SOCIAL HISTORY: She is . No alcohol, tobacco. Active lifestyle. REVIEW OF SYSTEMS: Twelve system review is positive for fatigue. Ear, nose and throat negative. Denies chest pain, palpitations. No asthma, wheezing. No nausea, vomiting. She has numbness and tingling, seizure disorder, joint pain, stiffness, easy bruisability. MEDICATIONS: Listed reviewed. OBJECTIVE: GENERAL: She is alert, oriented. She is 5 feet 4 inches and 260 pounds. VITAL SIGNS: Blood pressure 140/80, pulse 80, respiration 16. HEENT: Pupils react to light and accommodation. Ear, nose and throat clear. CARDIAC: Normal S1, S2, no S3. ABDOMEN: Soft, nontender. MUSCULOSKELETAL: Back pain with flexion, extension, numbness and tingling and some weakness as well, loss of sensation. PLAN: Includes a laminectomy and fusion T12-L2.
[~2019-02-18 09:53] MED LIST changes: -ACET-1256 PO; +ACETAMINOPHEN 1000 MG/100 ML IV IV SCH; -ATOR-22 PO; -CALC-51 PO; -CARB1CAP10 PO; +CEFAZOLIN 3000MG 72.5 ML IV SCH; -EVENCAP6 PO; -FEXO1TAB46 PO; -FLUT0.15 NAE; -FURO-85 PO; +LR 15ML/HR IV SCH; -RXC5 PO
[2019-02-18] MEDS ORDERED: ONDANSETRON INJ 2 MG/ML 2 ML VIAL IV PRN ×2 (11:39→16:41)
[2019-02-18] MEDS ORDERED: ePHEDrine sulfate 50 MG/ML AMP IV PRN (11:39)
[2019-02-18] MEDS ORDERED: ATROPINE SULFATE 0.1 MG/ML 10ML SYR IV PRN (11:39)
[2019-02-18] MEDS ORDERED: fentaNYL citrate 100 MCG/2 ML VIAL IV PRN (11:39)
[2019-02-18] MEDS ORDERED: BACITRACIN INJ 50,000 UNIT VIAL ONE (12:10)
[2019-02-18] MEDS ORDERED: GELATIN SPONGE SZ 100 ONE ×2 (12:10→14:01)
[2019-02-18] MEDS ORDERED: THROMBIN FOR SOLN 20000 UNIT KIT ONE ×2 (12:10→14:01)
[2019-02-18] MEDS ORDERED: VANCOMYCIN HCL 1000MG/20ML VIAL ONE (12:10)
[2019-02-18] MEDS ORDERED: BUPIVACAINE 0.5 % 5 MG/1 ML MPF 30ML VIAL ONE ×2 (12:11→15:03)
[2019-02-18] MEDS ORDERED: LIDOCAINE HCL 2% 2 ML VIAL/AMP(20MG/ML) INFIL ONE (12:16)
[2019-02-18] MEDS ORDERED: GLYCOPYRROLATE 0.2 MG/ML VIAL ONE (12:16)
[2019-02-18] MEDS ORDERED: LARYING-O-JET KIT (LTA) ONE (12:16)
[2019-02-18] MEDS ORDERED: PROPOFOL IV EMULSION 10 MG/ML 20 ML VIAL IV ONE (12:16)
[2019-02-18] MEDS ORDERED: DEXAMETHASONE SOD INJ 4 MG/ML VIAL ONE (12:16)
[2019-02-18] MEDS ORDERED: NEOSTIGMINE METHYLSULFATE 5 MG/5 ML SYR ONE (12:16)
[2019-02-18] MEDS ORDERED: ROCURONIUM BROMIDE 10 MG/ML 5 ML VIAL ONE (12:16)
[2019-02-18] MEDS ORDERED: ONDANSETRON INJ 2 MG/ML 2 ML VIAL ONE (12:16)
[2019-02-18] MEDS ORDERED: KETAMINE HCL INJ 50 MG/ML 10 ML VIAL ONE (12:17)
[2019-02-18] MEDS ORDERED: HYDROmorphone INJ 2 MG/ML SYR/VIAL ONE (12:17)
[2019-02-18] MEDS ORDERED: MIDAZOLAM HCL 1 MG/ML 2ML VIAL ONE (12:17)
--- NOTE | 2019-02-18 12:24 | History & Physical Bridge Note ---
Date of Service February 18, 2019 History & Physical Bridge Note I have examined the patient, reviewed the History & Physical and in the interval since the performance of the History & Physical I have noted the following changes of clinical significance: no changes noted
[2019-02-18] MEDS ORDERED: FLOSEAL HEMOSTATIC MATRIX 10ML TOP ONE (13:31)
--- NOTE | 2019-02-18 14:51 | Fluoroscopy Report ---
FL spine 1V any level HISTORY: Lumbar laminectomy. FLUOROSCOPY TIME: 5 seconds. FINDINGS: Intraoperative fluoroscopy was provided for the lumbar spine. 1 fluoroscopic spot images we re obtained. IMPRESSION: Fluoroscopy provided for a lumbar laminectomy and fusion extending from T12 through L2.. The above report was generated using voice recognition software. It may contain grammatical, syntax or spelling errors. Electronically signed by: Prince Flores M.D. 02/18/2019 2:50 PM
[2019-02-18] MEDS ORDERED: fentaNYL citrate 100 MCG/2 ML VIAL ONE (14:54)
--- NOTE | 2019-02-18 15:13 | Post Operative Brief Note ---
PG Immediate Post Op with CF Date of Surgery February 18, 2019 Pre & Post Diagnosis Operation Date: 02/18/19 12:10 Pre-Op Diagnosis: DEGENERATIVE DISC Post-Op Diagnosis: DEGENERATIVE DISC I identified the patient and participated in the time-out.: Yes Procedure Operation Date: 02/18/19 12:10 Actual Procedures p Removal of instrumentation L2-L4, decompression T12-L3, pedical screw instrumentation T12-L3, Fusion T12-L2(Not Applicable) - Tc Segundo DO Surgeon Tc Segundo DO Family Services Manager alysia Estimated Blood Loss 500 Findings Consistent with Post-Op Diagnosis Specimens Specimen Description: NONE PER SURGEON Drains Antoine Catheter and Hemovac Drain Anesthesia Type General Overlapping Procedure I was immediately available: during the entire case.
--- NOTE | 2019-02-18 15:41 | Operative Report ---
DATE OF OPERATION: 02/18/2019 PREOPERATIVE DIAGNOSES: Instability, lumbar spine; spinal stenosis, lumbar spine; failed implants, lumbar spine. POSTOPERATIVE DIAGNOSES: Instability, lumbar spine; spinal stenosis, lumbar spine; failed implants, lumbar spine. PROCEDURE: 1. Removal of spinal implants, lumbar spine from a posterior approach, L2, L3, L4 lumbar spine. 2. Decompression laminectomy, foraminotomy, partial facetectomy and decompression of spinal stenosis, T12, L1, L2 and L3. 3. Pedicle screw instrumentation, T12, L1, L2 and L3. 4. Posterior lateral fusion T12, L1, and L2. SURGEON: Tc Segundo DO. COMMERCIAL LOAN COORDINATOR: Julius Godfrey PA-C. COMPLICATIONS: Zero. BLOOD LOSS: 500 mL. COMORBIDITIES: Included significant obesity and multiple prior surgeries. DESCRIPTION OF PROCEDURE: The patient was taken to the operating room, a general intubated anesthetic provided to the patient. Antoine catheter administered. Placed prone on the Orlin table. Scrubbed, prepped, draped sterile. Formal timeout taken. We made a skin incision, fascial incision. It was a fairly deep wound because of her morbid obesity. We got down to the old spinal implants in the midline spinal structures. We were able to remove the old spinal implants, taking out the pedicle screws from L2, L3, L4 lumbar spine bilaterally. We then decompressed the neural elements, safely getting a decompression up at T12, L1, L2 and L3 lumbar spine to a 4-level decompression laminectomy, foraminotomy, partial facetectomy. We then instrumented the spine sensing instability. I was able to safely get pedicle screws into T12, L1, L2, and L4 bilaterally. Next, we were able to safely bone graft out of the spine getting bone graft at T12, L1 and L2. Every step was done with meticulous dissection and I felt we made no errors. The screw insertion was made with C-arm guidance. We irrigated and closed over vancomycin powder over Hemovac drain with 1 Vicryl suture of 2-0 and nylon and staple gun used on the skin. Sterile dressings applied. The patient returned to recovery room in satisfactory stable condition. No apparent intraoperative complications. Bone graft used was combination of autograft and demineralized bone matrix. Estimated blood loss was 500 mL. Sponge and needle count correct at the close. I attest to the content of the Intraoperative Record and any orders documented therein. Any exception s are noted below.
--- NOTE | 2019-02-18 15:58 | Anesthesiology Progress Note ---
Date of Service February 18, 2019 Anesthesia Post Procedure Vital Signs Vital Signs: Temp Pulse Pulse Resp BP Pulse Ox 02/18/19 15:55 36.5 C 69 16 134/84 100 02/18/19 15:45 36.6 C 75 16 130/83 100 02/18/19 15:35 36.6 C 89 16 128/86 100 02/18/19 15:32 36.6 C 89 16 128/86 100 02/18/19 15:25 36.6 C 85 17 133/96 100 02/18/19 10:56 36.8 C 65 18 131/85 97 Pain Intensity Lower Back: Pain Intensity: 0 Transfer of Care Handoff Completed per policy Notes Mental Status: alert / awake / arousable and participated in evaluation Patient Amnestic to Procedure: Yes Nausea / Vomiting: adequately controlled Pain: adequately controlled Airway Patency, RR, SpO2: stable & adequate BP & HR: stable & adequate Hydration State: stable & adequate Anesthetic Complications: no major complications apparent and Pt Satisfied with anesthetic care
[2019-02-18] MEDS ORDERED: ALUMINUM/MAGNESIUM SUSP 30 ML UDC PO PRN (16:41)
[2019-02-18] MEDS ORDERED: NALOXONE HCL 0.4 MG/1 ML VIAL/CARP IV PRN (16:41)
[2019-02-18] MEDS ORDERED: HYDROmorphone INJ 0.5 MG/0.5 ML SYR IV PRN (16:41)
[2019-02-18] MEDS ORDERED: DO NOT ADMINISTER FLU VACCINE PRN (16:41)
[2019-02-18] MEDS ORDERED: FUROSEMIDE 20 MG TAB PO PRN (16:41)
[2019-02-18] MEDS ORDERED: SOD PHOSPHATE/SOD BIPHOSPHATE ENEMA 132 ML BTL PR PRN (16:41)
[2019-02-18] MEDS ORDERED: ONDANSETRON 4 MG OD TAB PO PRN (16:41)
[2019-02-18] MEDS ORDERED: DO NOT ADMINISTER PNEUMOCOCCAL VACCINE PRN (16:41)
[2019-02-18] MEDS ORDERED: PROMETHAZINE HCL 12.5 MG in SODIUM CHLORIDE 0.9% 50 ML IV PRN (16:41)
[2019-02-18] MEDS ORDERED: BISACODYL 10 MG SUPP PR PRN (16:41)
[2019-02-18] MEDS ORDERED: MAGNESIUM HYDROXIDE SUSP 30 ML UDC PO PRN (16:41)
[2019-02-18] MEDS ORDERED: FAMOTIDINE 20 MG TAB PO PRN (16:41)
[2019-02-18] MEDS: SODIUM CHLORIDE 0.9% 1000ML 1,000 ML IV SCH (17:55)
[2019-02-18] MEDS: KETOROLAC 30 MG/ML VIAL IV SCH (17:55)
[2019-02-18] MEDS ORDERED: ACETAMINOPHEN 1,000 MG/100 ML VIAL IV PRN (19:00)
[2019-02-18] MEDS: OXYCODONE HCL IR 5 MG TAB (IMMEDIATE RELEASE) PO PRN ×2 (19:18→20:18)
[2019-02-18] MEDS: CEFAZOLIN 2000MG 2,000 MG/15 ML SYR IV SCH (20:16)
[2019-02-18] MEDS: guaiFENesin 600 MG TABCR PO SCH (20:19)
[2019-02-18] MEDS: DOCUSATE SODIUM/SENNA 50/8.6MG TAB PO SCH (20:19)
[2019-02-18] MEDS: HYDROmorphone INJ 1 MG/ML SYRINGE IV PRN (22:39)
[2019-02-19] MEDS: KETOROLAC 30 MG/ML VIAL IV SCH ×3 (00:13→11:57)
[2019-02-19] MEDS: CEFAZOLIN 2000MG 2,000 MG/15 ML SYR IV SCH (03:28)
[2019-02-19] MEDS: POLYETHYLENE (MIRALAX) 17 GM PACK PO SCH ×4 (06:17→23:14)
[2019-02-19] MEDS: SODIUM CHLORIDE 0.9% 1000ML 1,000 ML IV SCH (06:19)
[2019-02-19 06:25] LABS: Basophils # (auto) 0.01 K/uL (0-0.2); Basophils % (auto) 0.2 %; Eosinophils # (auto) 0.01 K/uL (0-0.5); Eosinophils % (auto) 0.2 %; Hematocrit (blood only) 27.9 % (37-47); Hemoglobin 9.5 g/dL (12.0-16.0); Immature Granulocytes # (auto) 0.01 K/uL (0.00-0.02); Immature Granulocytes % (auto) 0.2 %; Lymphocytes % (auto) 27.8 %; Mean Corpuscular Hemoglobin 31.5 pg (25-34); Mean Corpuscular Hgb Conc 34.1 g/dL (32-36); Mean Corpuscular Volume 92.4 fL (80-100); Mean Platelet Volume 9.3 fL (7.4-10.4); Monocytes # (auto) 0.42 K/uL (0.11-0.59); Monocytes % (auto) 6.9 %; Neutrophils # (auto) 3.97 K/uL (1.4-6.5); Neutrophils % (auto) 64.7 %; Platelet Count 131 K/uL (130-400); Red Blood Count 3.02 M/uL (4.2-5.4); White Blood Count 6.12 K/uL (4.8-10.8)
[2019-02-19 06:51] LABS: BUN Creatinine Ratio 12.9 (10-20); Calcium 8.3 mg/dl (8.5-10.1); Creatinine Clr Calc Pharmacy 73.9 ml/min; Est GFR (Non-African American) 56.9; Potassium 4.6 mmol/L (3.5-5.1)
--- NOTE | 2019-02-19 08:01 | Anesthesiology Progress Note ---
Date of Service February 19, 2019 Anesthesia Post Procedure Vital Signs Vital Signs: Temp Pulse Pulse Resp BP Pulse Ox 02/19/19 07:15 36.9 C 75 16 121/72 100 02/19/19 03:37 36.9 C 74 16 117/74 99 02/18/19 23:43 36.8 C 60 16 109/72 98 02/18/19 19:42 36.8 C 71 16 141/86 H 95 02/18/19 18:47 36.4 C L 67 16 121/80 96 02/18/19 17:43 36.5 C 61 16 148/87 H 100 02/18/19 17:24 36.6 C 62 16 100/86 100 02/18/19 16:30 36.6 C 80 18 146/83 H 100 02/18/19 16:05 36.3 C L 74 14 145/88 H 100 02/18/19 15:55 36.5 C 69 16 134/84 100 02/18/19 15:45 36.6 C 75 16 130/83 100 02/18/19 15:35 36.6 C 89 16 128/86 100 02/18/19 15:32 36.6 C 89 16 128/86 100 02/18/19 15:25 36.6 C 85 17 133/96 100 02/18/19 10:56 36.8 C 65 18 131/85 97 Pain Intensity Lower Back: Pain Intensity: 4 Notes Mental Status: alert / awake / arousable and participated in evaluation Patient Amnestic to Procedure: Yes Nausea / Vomiting: adequately controlled Pain: adequately controlled Airway Patency, RR, SpO2: stable & adequate BP & HR: stable & adequate Hydration State: stable & adequate Anesthetic Complications: no major complications apparent and Pt Satisfied with anesthetic care
[2019-02-19] MEDS: LISINOPRIL 5 MG TAB PO SCH (08:57)
[2019-02-19] MEDS: PANTOprazole 40 MG TAB PO SCH (08:57)
[2019-02-19] MEDS: ATORVASTATIN 20 MG TAB PO SCH (08:57)
[2019-02-19] MEDS: guaiFENesin 600 MG TABCR PO SCH ×2 (08:57→20:20)
[2019-02-19] MEDS: FEXOFENADINE HCL 180 MG TAB PO SCH (08:57)
[2019-02-19] MEDS: HYDROmorphone INJ 1 MG/ML SYRINGE IV PRN ×2 (09:04→15:16)
[2019-02-19] MEDS: FLUTICASONE PROPIONATE NA SPR 16 GM BTL SCH (09:44)
[2019-02-19] MEDS: DOCUSATE SODIUM/SENNA 50/8.6MG TAB PO SCH (20:20)
[2019-02-20] MEDS: OXYCODONE HCL IR 5 MG TAB (IMMEDIATE RELEASE) PO PRN (03:35)
[2019-02-20] MEDS: POLYETHYLENE (MIRALAX) 17 GM PACK PO SCH (05:37)
[2019-02-20] MEDS: FEXOFENADINE HCL 180 MG TAB PO SCH (08:48)
[2019-02-20] MEDS: PANTOprazole 40 MG TAB PO SCH (08:48)
[2019-02-20] MEDS: guaiFENesin 600 MG TABCR PO SCH (08:48)
[2019-02-20] MEDS: FLUTICASONE PROPIONATE NA SPR 16 GM BTL SCH (08:48)
[2019-02-20] MEDS: LISINOPRIL 5 MG TAB PO SCH (08:48)
[2019-02-20] MEDS: ATORVASTATIN 20 MG TAB PO SCH (08:49)
[2019-02-20] MEDS ORDERED: CARBAMAZEPINE 100 MG TABCR PO SCH (09:00)
== END 2019-02-20 12:19 | disposition home or self-care (01) | DRG 460 ==
LOC: ASU 09:53 → 3N 15:25